=== PATIENT | female | born 1985 | race Caucasian/White ===

== ENCOUNTER → 2018-11-16 10:50 | Observation (INO) ==
--- NOTE | 2018-11-16 07:26 | OB/GYN History & Physical ---
Date of Encounter: 11/16/18 Time of Encounter: 07:23 Assessment and Plan (1) Missed with demise before 20 completed weeks of gestation Current visit: Yes Status: Acute 33yo female at 8 weeks gestation by certain LMP presents for missed . She has no bleeding or pain. We have discussed with pt options including expectant management, cytotec vs d&c. She has had miserable experiences with attempts at medical inducement of miscarrage and spontaneous attempts at miscarrage and desires to proceed with suction d&c. History of Present Illness Chief complaint: missed HPI: Ms. Patterson is a 33 year old female 33yo female at 8 weeks gestation presents with missed . She has been followed in office for last 2 weeks and has not had progression of growth of gestational sac and is now measuring 6 weeks with probable blighted ovum. There is no pole and thus obviously no heart tones. Past Med Surg Social Fam HX - Past Medical History Source: patient, old records reviewed Medical history: non-contributory Psychiatric history: no psych history - Social History Smoking Status: Current every day smoker Smokeless Tobacco Status: No Alcohol use: none Drug use: none Obstetrical History - Pregnancies : 4 Para: 1 Medications and Allergies Allergy/AdvReac Type Severity Reaction Status Date / Time No Known Allergies Allergy Verified 11/16/18 06:29 Exam - Constitutional Constitutional: well developed - HEENT HEENT: EOMI - Neck Neck exam: full ROM - Lungs Respiratory exam: CTAB - Cardiovascular Cardiovascular exam: RRR - Abdomen Abdomen: Present: bowel sounds normal - Extremities Extremities exam: full ROM Deep Tendon Reflex Grade: 2+ Normal Results All other labs normal.
--- NOTE | 2018-11-16 07:46 | Anesthesia Evaluation PreOp ---
Date of Encounter: 11/16/18 Time of Encounter: 07:44 - Past History Planned Operation: D&C/9 weeks Cardiac History: Denies any Significant Hx Pulmonary History: Smoker DEVELOPER DESIGNER History: Denies Any Significant HX Other Medical History: Denies Any Significant HX Anesthesia History: No Prior Anesthetic Complications (No Previous anesthetics) Alcohol Use: none Drug use: none Medications and Allergies Allergy/AdvReac Type Severity Reaction Status Date / Time No Known Allergies Allergy Verified 11/16/18 06:29 - Meds/Allergy Pre-op Review Medications Reviewed: Yes Allergies Reviewed: Yes Beta Blockers on Current Med List: No Anesthesia Exam O2 Sat Height 1.65 m Weight 103.646 kg Vital Signs Temp Pulse Resp BP 97.3 F L 82 16 123/67 11/16/18 07:23 11/16/18 07:23 11/16/18 07:23 11/16/18 07:23 NPO (# of Hours): 8 Pain Scale: 0 Pain Scale Used: Numeric (1 - 10) - HEENT Pupil (Motor): Pupils equal Mallampati: II Teeth: Normal Oral Opening: Greater than 3 - DEVELOPER DESIGNER LOC: Oriented DEVELOPER DESIGNER Motor: Normal RUE, Normal LUE, Normal RLE, Normal LLE, Normal Face DEVELOPER DESIGNER Sensory: Normal: RUE, LUE, RLE, LLE, Face - Cardiac Rhythm: Regular Murmur: None JVD: No Carotid Bruit: No - Pulmonary Breath Sounds: bilateral Clear Respiratory Effort: Symmetrical Anesthesia Assess/Plan ASA Score: 2 Level of consciousness: Cooperative, Oriented Anesthetic Plan: General Autologous Blood: Yes Monitoring Plan: Standard Monitors Recovery Plan: PACU
--- NOTE | 2018-11-16 09:10 | Discharge Summary ---
Outpatient Proc Discharge Plan - Plan Prescriptions: clonazePAM [Klonopin] 0.5 mg PO BID PRN 30 Days #20 tablet PRN Reason: anxiety/grief Ibuprofen [Motrin] 600 mg PO Q6HR PRN #30 tab PRN Reason: post op pain HYDROcodone/Acet 5/325 mg [Mccoll 5-325 mg] 1 tab PO Q4H PRN 7 Days #20 tab PRN Reason: post op pain Home Medications: HYDROcodone/Acet 5/325 mg [Mccoll 5-325 mg] 1 tab PO Q4H PRN 7 Days #20 tab 11/16/18 [Rx] Ibuprofen [Motrin] 600 mg PO Q6HR PRN #30 tab 11/16/18 [Rx] clonazePAM [Klonopin] 0.5 mg PO BID PRN 30 Days #20 tablet 11/16/18 [Rx]
--- NOTE | 2018-11-16 09:13 | OB/GYN Procedure Note ---
Suction D&C - Diagnosis Date of procedure: 11/16/18 Pre-op diagnosis: missed Post-op diagnosis: same - Procedure Procedure: suction D&C Surgeon: Darshan Sotomayor Was there an staff assistant present: No Anesthesia Type: General Estimated blood loss (cc): 200 Complications: none Fluids: crystalloid Specimen: products of conception Disposition: PACU Narrative: Patient's 33-year-old 4 para 1 female should have been 9 weeks gestation today who been followed in office and diagnosed with missed . She had been followed with serial ultrasound and ultrasound on Saturday 2 days ago the growth that stopped approximately 6 weeks. After discussed with patient options patient did elect for suction D&C. She is aware of operative risks and signed appropriate consent. Description procedure: Patient was taken operating room where general anesthesia was administered. She is prepped draped in usual sterile fashion. Bladder was drained of clear urine. Cervix is visualized and grasped with single-tooth tenaculum. [place] uterine manipulators placed in the cervix. Cervix is dilated large size Hanks dilator and 8 mm suction curet was passed and suction curettage was performed without difficulty. Typical products conception were removed. Gentle sharp curettage and revealed smooth uterine sparrow was minimal residual tissue. Again suction curet was passed revealing little bit of tissue mostly clot. This point uterus was massaged until firm she was given Methergine 0.2 mg IM all sponge counts counts are correct patient taken recovery in good condition.
[2018-11-16 10:01] VITALS: BP 123/69
[~2018-11-16 10:50] MED LIST: *HR* FentaNYL (PF) 100 MCG/2 ML VIAL ONE; *HR* HYDROcodone/Acet 5/325 mg TABLET PO ONE; *HR* HYDROmorphone (PF) 1 MG/ML SYRINGE IVP PRN; *HR* HYDROmorphone 2 MG TABLET PO PRN; *HR* Labetalol 20 MG/4 ML SYRINGE IVP PRN; *HR* Midazolam HCl 2 MG/2 ML VIAL ONE; *HR* OxyCODONE Immed Rel 5 MG TABLET PO PRN; *HR* Promethazine 25 MG/ML VIAL IVP PRN; *HR* Propofol 200 MG/20 ML VIAL IVP ONE; Acetaminophen IV 1,000 MG/100 ML INFUS..BTL IVPB ONE; Dexamethasone 4 MG/ML VIAL ONE; Lidocaine -MPF 2% 5 ML VIAL ONE; Methylergonovine 0.2 MG/ML AMPUL IM ONE; Ondansetron 4 MG/2 ML VIAL ONE; Ringers Solution, Lactated 1,000 ML IVC ONE; Ringers Solution, Lactated 1,000 ML IVC SCH; Ringers Solution, Lactated 1,000 ML ONE
== END | disposition home or self-care (01) ==
LOC: 1NENULAB
PROVIDERS: ADMIT Obstetrics & Gynecology; ATTEND Obstetrics & Gynecology

== ENCOUNTER 2020-01-12 10:00 | Inpatient (IN) ==
[2020-01-12] MEDS ORDERED: *HR* FentaNYL (PF) 100 MCG/2 ML VIAL IVP PRN (11:01)
[2020-01-12] MEDS ORDERED: Metoclopramide 10 MG/2 ML VIAL IVP PRN (11:01)
[2020-01-12] MEDS ORDERED: Ondansetron 4 MG/2 ML VIAL IVP PRN ×2 (11:01→15:10)
[2020-01-12] MEDS ORDERED: Famotidine 20 MG/2 ML VIAL IVP PRN (11:01)
[2020-01-12] MEDS ORDERED: Naloxone 0.4 MG/ML INJ IVP PRN ×2 (11:01→15:10)
[2020-01-12] MEDS ORDERED: Ringers Solution, Lactated 1,000 ML IVC SCH (11:15)
[2020-01-12 12:00] LABS: Basophils % 0.2 %; Eosinophils # 0.1 K/mcL (0.0-0.6); Eosinophils % 0.5 %; Hematocrit 35.4 % (35.3-44.9); Hemoglobin 11.2 g/dL (11.5-15.4); Immature Granulocytes % 1.4 % (0-4); Lymphocytes # 1.5 K/mcL (0.6-4.6); Lymphocytes % 14.1 %; Mean Corpuscular HGB Conc 31.6 g/dL (31.6-35.5); Mean Corpuscular Hemoglobin 28.8 pg (28.0-33.3); Mean Platelet Volume 11.1 fL (9.4-12.4); Monocytes # 0.4 K/mcL (0.0-1.3); Monocytes % 4.3 %; Neutrophils # 8.2 K/mcL (1.6-8.9); Platelet Count 175 K/mcL (140-400); Red Blood Count 3.89 M/mcL (3.82-4.97); Red Cell Distribution Width 15.9 % (11.5-14.5); Segmented Neutrophils % 79.5 %; White Blood Count 10.3 K/mcL (4.3-11.1)
[2020-01-12 12:04] LABS: Amphetamine Screen,Urine Negative ng/mL (Cutoff=1000); Barbiturate Screen,Urine Negative ng/mL (Cutoff=200); Benzodiazepines Screen,Urine Negative ng/mL (Cutoff=200); Cannabinoid Screen,Urine Negative ng/mL (Cutoff = 50); Cocaine Screen,Urine Negative ng/mL (Cutoff= 300); Opiate Screen,Urine Negative ng/mL (Cutoff=300); Phencyclidine Screen,Urine Negative ng/mL (Cutoff=25)
[2020-01-12] MEDS ORDERED: Oxytocin 20 units/ LR 1000 mL 20 UNIT/1,000 ML BAG IVC ONE (12:28)
[2020-01-12] MEDS ORDERED: Oxytocin 20 units/ LR 1000 mL 20 UNIT/1,000 ML BAG IVC SCH (12:30)
[2020-01-12] MEDS ORDERED: EPHEDrine 50 MG/ML VIAL IVP PRN (15:10)
[2020-01-12] MEDS ORDERED: Ropivacaine/PF 0.2% 20 ML VIAL EP ONE (15:10)
[2020-01-12] MEDS ORDERED: Epidural Premix (fent/bupiv) 110 ML EP SCH (15:15)
[2020-01-12] MEDS ORDERED: Ropivacaine/PF 0.2% 20 ML VIAL ONE (17:03)
[2020-01-12] MEDS ORDERED: *HR* FentaNYL (PF) 100 MCG/2 ML VIAL ONE (19:36)
[2020-01-12] MEDS ORDERED: Lidocaine 1% 20 ML MDV ONE (23:54)
[2020-01-13] MEDS ORDERED: Ibuprofen 600 MG TABLET PO ONE (01:24)
[2020-01-13] MEDS ORDERED: Oxytocin 20 units/ LR 1000 mL 20 UNIT/1,000 ML BAG IVC ONE (02:20)
[2020-01-13] MEDS ORDERED: Lanolin 7 G OINT...G. TP PRN (02:20)
[2020-01-13] MEDS ORDERED: Acetaminophen 325 MG TABLET PO PRN (02:20)
[2020-01-13] MEDS ORDERED: Measles/Mumps/Rubella Vacc 0.5 ML VIAL SQ PRN (02:20)
[2020-01-13] MEDS ORDERED: Rho Immune Globulin 1,500 UNIT SYRINGE IM PRN (02:20)
[2020-01-13] MEDS ORDERED: Oxytocin 20 units/ LR 1000 mL 20 UNIT/1,000 ML BAG IVC SCH (02:20)
[2020-01-13 06:05] LABS: Basophils % 0.1 %; Eosinophils % 0.1 %; Hematocrit 31.3 % (35.3-44.9); Hemoglobin 9.7 g/dL (11.5-15.4); Immature Granulocytes % 1.1 % (0-4); Lymphocytes # 1.1 K/mcL (0.6-4.6); Lymphocytes % 7.3 %; Mean Corpuscular Hemoglobin 29.1 pg (28.0-33.3); Mean Platelet Volume 11.9 fL (9.4-12.4); Monocytes # 0.5 K/mcL (0.0-1.3); Monocytes % 3.5 %; Neutrophils # 12.9 K/mcL (1.6-8.9); Platelet Count 169 K/mcL (140-400); Red Blood Count 3.33 M/mcL (3.82-4.97); Red Cell Distribution Width 15.7 % (11.5-14.5); Segmented Neutrophils % 87.9 %; White Blood Count 14.7 K/mcL (4.3-11.1)
[2020-01-13] MEDS: Ibuprofen 600 MG TABLET PO PRN ×2 (08:52→15:47)
[2020-01-13] MEDS: Prenatal Vit/FA 1 EACH TABLET PO SCH (08:52)
[2020-01-14] MEDS: Ibuprofen 600 MG TABLET PO PRN ×2 (00:15→09:57)
[2020-01-14 08:15] VITALS: BP 118/48
[2020-01-14] MEDS: Prenatal Vit/FA 1 EACH TABLET PO SCH (09:56)
== END 2020-01-14 13:17 | disposition home or self-care (01) | DRG 807 ==
LOC: 1NENULAB 10:03 → 1NENUOBS 01-13 02:24
PROVIDERS: ADMIT Obstetrics & Gynecology; ATTEND Obstetrics & Gynecology